=== PATIENT | female | born 1935 | race Caucasian/White ===

== ENCOUNTER 2017-02-16 04:36 | Inpatient (IN) | payer MEDICARE, OTHER ==
[2017-02-16] MEDS: SOD CHLORIDE 0.9% 500 ML IV (04:55)
[2017-02-16] MEDS: morphine 4 MG/ML VIAL IV (05:12)
[2017-02-16] MEDS: ONDANSETRON 4 MG INJ IV (05:12)
[2017-02-16 05:23] LABS: URINE PH (Dip) POC 5.5 (5.0-8.5)
[2017-02-16 05:23] LABS: URINE BLOOD (Dip) POC Trace-intact (NEGATIVE); URINE GLUCOSE (Dip) POC Negative (NEGATIVE); URINE KETONES (Dip) POC Negative (NEGATIVE); URINE LEUKOCYTE EST (Dip) POC 1+ (NEGATIVE); URINE NITRITE (Dip) POC Negative (NEGATIVE); URINE TOTAL PROTEIN POC Negative (NEGATIVE)
[2017-02-16] MEDS: CEFTRIAXONE 1 GM/50 ML (PMX) 50 ML IVPB ×2 (06:14→15:00)
[2017-02-16] MEDS: HYDROmorphONE 1 MG/ML SYG IV ×2 (06:14→08:57)
[2017-02-16 06:18] LABS: ADD MAN DIFF? NO
[2017-02-16 06:28] LABS: INR 1.06; PROTIME 13.9 Sec (11.9-14.9); PT RATIO 1.1
[2017-02-16 06:40] LABS: ADD UMIC YES; UR ASCORBIC ACID NEGATIVE (NEGATIVE); UR BACTERIA MANY /HPF (NONE SEEN); UR BILIRUBIN (Dip) NEGATIVE (NEGATIVE); UR BLOOD (Dip) NEGATIVE (NEGATIVE); UR BUDDING YEAST FEW /HPF (NONE SEEN); UR CLARITY SLIGHTLY CLOUDY (CLEAR); UR COLOR YELLOW (YELLOW); UR GLUCOSE (Dip) NEGATIVE (NEGATIVE); UR KETONES (Dip) NEGATIVE (NEGATIVE); UR LEUKOCYTE ESTERASE (Dip) TRACE Leu/ul (NEGATIVE); UR MUCUS FEW /HPF (NONE SEEN); UR NITRITE (Dip) NEGATIVE (NEGATIVE); UR RBC 0 /HPF (0-5); UR SQUAMOUS EPITHELIAL CELL FEW /HPF (FEW); UR TOTAL PROTEIN (Dip) NEGATIVE (NEGATIVE); UR UROBILINOGEN (Dip) 2+ mg/dL (NEGATIVE); UR WBC 27 /HPF (0-5)
[2017-02-16 06:41] LABS: WHITE BLOOD COUNT 7.5 10^3/ul (4.8-10.8)
[2017-02-16 06:41] LABS: BASOPHIL # 0.1 10^3/ul (0.0-0.1); BASOPHILS % 0.8 % (0.0-2.0); EOSINOPHILS # 0.2 10^3/ul (0.0-0.5); EOSINOPHILS % 2.5 % (0.0-7.0); HEMATOCRIT 43.2 % (37.0-47.0); LYMPHOCYTES # 1.7 10^3/ul (0.8-2.9); MEAN CORPUSCULAR HEMOGLOBIN 31.5 pg (29.0-33.0); MEAN CORPUSCULAR HGB CONC 32.4 g/dl (32.0-37.0); MEAN CORPUSCULAR VOLUME 97.3 fl (82.0-101.0); MEAN PLATELET VOLUME 10.7 fl (7.4-10.4); MONOCYTE # 0.5 10^3/ul (0.3-0.9); MONOCYTES % 6.5 % (0.0-11.0); NEUTROPHILS % 65.9 % (39.0-77.0); PLATELET COUNT 154 10^3/UL (140-415); RED BLOOD COUNT 4.44 10^6/ul (4.20-5.40); RED CELL DISTRIBUTION WIDTH 12.2 % (11.5-14.5)
[2017-02-16 07:02] LABS: ALANINE AMINOTRANSFERASE 28 IU/L (13-69); ALBUMIN 3.7 g/dl (3.3-4.9); ALBUMIN/GLOBULIN RATIO 1.32; ALKALINE PHOSPHATASE 72 IU/L (42-121); ANION GAP 15 (8-16); ASPARTATE AMINO TRANSFERASE 23 IU/L (15-46); BILIRUBIN,INDIRECT 0.4 mg/dl (0-1.1); BILIRUBIN,TOTAL 0.4 mg/dl (0.2-1.3); BLOOD UREA NITROGEN 13 mg/dl (7-20); CALCIUM 8.4 mg/dl (8.4-10.2); CARBON DIOXIDE 27 mmol/L (21-31); CHLORIDE 105 mmol/L (97-110); CREATININE 0.78 mg/dl (0.44-1.00); GLUCOSE 121 mg/dl (70-220); LIPASE 179 U/L (23-300); SODIUM 143 mmol/L (135-144); TOTAL PROTEIN 6.5 g/dl (6.1-8.1)
[2017-02-16] MEDS ORDERED: ONDANSETRON 4 MG INJ IV ×2 (11:00→15:00)
[2017-02-16] MEDS ORDERED: ACETAMINOPHEN 325 MG TAB PO (11:00)
[2017-02-16] MEDS: SOD CHLORIDE 0.9% 1,000 ML IV (15:00)
[2017-02-16] MEDS: KETOROLAC 15 MG INJ IV ×2 (15:00→21:11)
[2017-02-16] MEDS: FLUCONAZOLE 200 MG/NS (PMX) 100 ML IVPB (15:00)
[2017-02-16] MEDS ORDERED: ATORVASTATIN 10 MG TAB PO (21:00)
[2017-02-16] MEDS: ATORVASTATIN 40 MG TAB PO (21:30)
[2017-02-16] MEDS: HYDROCODONE/APAP (5/325) TAB PO (21:54)
[2017-02-16] MEDS ORDERED: HYDROCODONE/APAP (5/325) TAB PO (22:00)
[2017-02-16] MEDS: METOPROLOL 25 MG TAB PO (22:02)
[2017-02-17] MEDS: morphine 2 MG INJ IV ×2 (01:26→07:39)
[2017-02-17 02:05] LABS: CREATINE KINASE 6745 IU/L (23-200)
[2017-02-17 02:06] LABS: CK INDEX 0.3; TROPONIN-I 0.015 ng/ml (0.00-0.12)
[2017-02-17] MEDS: KETOROLAC 15 MG INJ IV ×4 (03:30→21:00)
[2017-02-17 05:50] LABS: ADD MAN DIFF? NO
[2017-02-17 05:57] LABS: BASOPHILS % 0.1 % (0.0-2.0); EOSINOPHILS % 0.1 % (0.0-7.0); HEMATOCRIT 39.7 % (37.0-47.0); HEMOGLOBIN 12.7 g/dl (12.0-16.0); LYMPHOCYTES # 1.1 10^3/ul (0.8-2.9); LYMPHOCYTES % 12.4 % (15.0-51.0); MEAN CORPUSCULAR HEMOGLOBIN 31.8 pg (29.0-33.0); MEAN CORPUSCULAR VOLUME 99.5 fl (82.0-101.0); MEAN PLATELET VOLUME 10.9 fl (7.4-10.4); MONOCYTE # 0.9 10^3/ul (0.3-0.9); MONOCYTES % 10.5 % (0.0-11.0); NEUTROPHIL # 6.8 10^3/ul (1.6-7.5); NEUTROPHILS % 76.6 % (39.0-77.0); PLATELET COUNT 142 10^3/UL (140-415); RED BLOOD COUNT 3.99 10^6/ul (4.20-5.40); RED CELL DISTRIBUTION WIDTH 12.5 % (11.5-14.5)
[2017-02-17 05:57] LABS: WHITE BLOOD COUNT 8.9 10^3/ul (4.8-10.8)
[2017-02-17 06:18] LABS: ANION GAP 14 (8-16); BLOOD UREA NITROGEN 20 mg/dl (7-20); CALCIUM 7.9 mg/dl (8.4-10.2); CARBON DIOXIDE 27 mmol/L (21-31); CHLORIDE 107 mmol/L (97-110); GLUCOSE 118 mg/dl (70-220); MAGNESIUM 1.7 mg/dl (1.7-2.5); POTASSIUM 4.4 mmol/L (3.5-5.1); SODIUM 144 mmol/L (135-144)
[2017-02-17 06:27] LABS: TROPONIN-I 0.017 ng/ml (0.00-0.12)
[2017-02-17] MEDS: SOD CHLORIDE 0.9% 1,000 ML IV (07:41)
[2017-02-17 08:13] LABS: CK INDEX 0.3; CREATINE KINASE 5050 IU/L (23-200)
[2017-02-17 08:38] LABS: HEMOGLOBIN A1C 5.5 % (0-5.9)
[2017-02-17] MEDS: TOLTERODINE (SR) 4 MG CAP PO (09:31)
[2017-02-17] MEDS: LORATADINE 10 MG TAB PO (09:31)
[2017-02-17] MEDS: ATENOLOL 25 MG TAB PO (09:32)
[2017-02-17] MEDS: FLUOXETINE 20 MG CAP PO (09:33)
[2017-02-17] MEDS: METOPROLOL 25 MG TAB PO ×2 (09:34→21:01)
[2017-02-17] MEDS: PANTOPRAZOLE (EC) 40 MG TAB PO (09:36)
[2017-02-17] MEDS: INFLUENZA VIRUS VACCINE 0.5 ML (DISPENSING) IM* (09:36)
[2017-02-17] MEDS: CEFTRIAXONE 1 GM/50 ML (PMX) 50 ML IVPB (14:32)
[2017-02-17] MEDS: FLUCONAZOLE 200 MG/NS (PMX) 100 ML IVPB (15:22)
[2017-02-17] MEDS: ATORVASTATIN 40 MG TAB PO (21:00)
[2017-02-17] MEDS: HEPARIN 5,000 UNIT/0.5 ML VIAL SC (21:09)
[2017-02-17] MEDS ORDERED: ZOLPIDEM 5 MG TAB PO (21:30)
[2017-02-17] MEDS: HYDROCODONE/APAP (5/325) TAB PO (22:21)
[2017-02-18] MEDS: KETOROLAC 15 MG INJ IV ×2 (03:05→10:12)
[2017-02-18 05:15] LABS: ADD MAN DIFF? NO
[2017-02-18 05:22] LABS: BASOPHIL # 0.1 10^3/ul (0.0-0.1); BASOPHILS % 0.6 % (0.0-2.0); EOSINOPHILS # 0.1 10^3/ul (0.0-0.5); EOSINOPHILS % 1.5 % (0.0-7.0); HEMATOCRIT 39.8 % (37.0-47.0); HEMOGLOBIN 12.7 g/dl (12.0-16.0); LYMPHOCYTES # 1.5 10^3/ul (0.8-2.9); LYMPHOCYTES % 18.1 % (15.0-51.0); MEAN CORPUSCULAR HEMOGLOBIN 31.9 pg (29.0-33.0); MEAN CORPUSCULAR HGB CONC 31.9 g/dl (32.0-37.0); MONOCYTE # 0.8 10^3/ul (0.3-0.9); NEUTROPHIL # 5.6 10^3/ul (1.6-7.5); NEUTROPHILS % 69.5 % (39.0-77.0); PLATELET COUNT 139 10^3/UL (140-415); RED BLOOD COUNT 3.98 10^6/ul (4.20-5.40); RED CELL DISTRIBUTION WIDTH 12.5 % (11.5-14.5)
[2017-02-18 06:18] LABS: ANION GAP 13 (8-16); BLOOD UREA NITROGEN 26 mg/dl (7-20); CALCIUM 8.6 mg/dl (8.4-10.2); CARBON DIOXIDE 29 mmol/L (21-31); CHLORIDE 108 mmol/L (97-110); CREATININE 0.82 mg/dl (0.44-1.00); GLUCOSE 110 mg/dl (70-220); POTASSIUM 4.3 mmol/L (3.5-5.1); SODIUM 146 mmol/L (135-144)
[2017-02-18] MEDS: FLUOXETINE 20 MG CAP PO (10:12)
[2017-02-18] MEDS: LORATADINE 10 MG TAB PO (10:13)
[2017-02-18] MEDS: METOPROLOL 25 MG TAB PO ×2 (10:13→20:29)
[2017-02-18] MEDS: TOLTERODINE (SR) 4 MG CAP PO (10:14)
[2017-02-18] MEDS: PANTOPRAZOLE (EC) 40 MG TAB PO (10:14)
[2017-02-18] MEDS: ATENOLOL 25 MG TAB PO (10:15)
[2017-02-18] MEDS: HEPARIN 5,000 UNIT/0.5 ML VIAL SC ×2 (10:16→20:30)
[2017-02-18] MEDS: CEFTRIAXONE 1 GM/50 ML (PMX) 50 ML IVPB (14:51)
[2017-02-18] MEDS: SOD CHLORIDE 0.9% 500 ML IV (15:33)
[2017-02-18] MEDS: GUAIFENESIN/DM 5ML CUP PO ×3 (15:57→20:28)
[2017-02-18] MEDS: BENZONATATE 100 MG CAP PO ×2 (15:57→20:28)
[2017-02-18] MEDS: FLUCONAZOLE 200 MG/NS (PMX) 100 ML IVPB (16:44)
[2017-02-18] MEDS: SOD CHLORIDE 0.9% 1,000 ML IV (16:44)
[2017-02-18] MEDS: morphine 2 MG INJ IV (19:34)
[2017-02-18] MEDS: ATORVASTATIN 40 MG TAB PO (20:28)
[2017-02-19] MEDS: morphine 2 MG INJ IV ×2 (00:28→04:29)
[2017-02-19] MEDS: GUAIFENESIN/DM 5ML CUP PO ×6 (02:54→23:00)
[2017-02-19 05:25] LABS: ADD MAN DIFF? NO
[2017-02-19 05:31] LABS: WHITE BLOOD COUNT 7.4 10^3/ul (4.8-10.8)
[2017-02-19 05:31] LABS: BASOPHILS % 0.5 % (0.0-2.0); EOSINOPHILS # 0.2 10^3/ul (0.0-0.5); EOSINOPHILS % 2.3 % (0.0-7.0); HEMATOCRIT 39.7 % (37.0-47.0); LYMPHOCYTES # 1.2 10^3/ul (0.8-2.9); LYMPHOCYTES % 16.4 % (15.0-51.0); MEAN CORPUSCULAR HEMOGLOBIN 32.1 pg (29.0-33.0); MEAN CORPUSCULAR HGB CONC 32.7 g/dl (32.0-37.0); MEAN PLATELET VOLUME 10.9 fl (7.4-10.4); MONOCYTE # 0.6 10^3/ul (0.3-0.9); MONOCYTES % 8.2 % (0.0-11.0); NEUTROPHIL # 5.4 10^3/ul (1.6-7.5); NEUTROPHILS % 72.3 % (39.0-77.0); PLATELET COUNT 145 10^3/UL (140-415); RED BLOOD COUNT 4.05 10^6/ul (4.20-5.40); RED CELL DISTRIBUTION WIDTH 12.5 % (11.5-14.5)
[2017-02-19 05:47] LABS: ANION GAP 14 (8-16); BLOOD UREA NITROGEN 22 mg/dl (7-20); CARBON DIOXIDE 29 mmol/L (21-31); CHLORIDE 106 mmol/L (97-110); CREATININE 0.74 mg/dl (0.44-1.00); GLUCOSE 117 mg/dl (70-220); POTASSIUM 4.2 mmol/L (3.5-5.1); SODIUM 145 mmol/L (135-144)
[2017-02-19] MEDS: LORATADINE 10 MG TAB PO (08:52)
[2017-02-19] MEDS: ATENOLOL 25 MG TAB PO (08:53)
[2017-02-19] MEDS: PANTOPRAZOLE (EC) 40 MG TAB PO (08:53)
[2017-02-19] MEDS: BENZONATATE 100 MG CAP PO ×3 (08:53→22:12)
[2017-02-19] MEDS: TOLTERODINE (SR) 4 MG CAP PO (08:53)
[2017-02-19] MEDS: FLUOXETINE 20 MG CAP PO (08:53)
[2017-02-19] MEDS: METOPROLOL 25 MG TAB PO ×2 (08:54→22:11)
[2017-02-19] MEDS: HEPARIN 5,000 UNIT/0.5 ML VIAL SC ×2 (08:56→22:14)
[2017-02-19] MEDS: CARISOPRODOL 350 MG TAB PO ×2 (12:57→22:15)
[2017-02-19] MEDS: ACETAMINOPHEN 1000MG/100ML IV 100 ML IVPB ×2 (12:57→18:10)
[2017-02-19] MEDS: SOD CHLORIDE 0.9% 1,000 ML IV (13:52)
[2017-02-19] MEDS: HYDROmorphONE 1 MG/ML SYG IV (14:04)
[2017-02-19] MEDS: CELECOXIB 100 MG CAP PO ×2 (14:16→22:12)
[2017-02-19] MEDS: CEFTRIAXONE 1 GM/50 ML (PMX) 50 ML IVPB (15:12)
[2017-02-19] MEDS: FLUCONAZOLE 200 MG TAB PO (18:10)
[2017-02-19] MEDS: ATORVASTATIN 40 MG TAB PO (22:11)
[2017-02-20] MEDS: ACETAMINOPHEN 1000MG/100ML IV 100 ML IVPB ×2 (00:22→05:57)
[2017-02-20] MEDS: GUAIFENESIN/DM 5ML CUP PO ×6 (03:00→23:00)
[2017-02-20 05:09] LABS: ADD MAN DIFF? NO
[2017-02-20 05:14] LABS: BASOPHILS % 0.4 % (0.0-2.0); EOSINOPHILS # 0.1 10^3/ul (0.0-0.5); EOSINOPHILS % 1.9 % (0.0-7.0); HEMATOCRIT 38.7 % (37.0-47.0); HEMOGLOBIN 12.7 g/dl (12.0-16.0); LYMPHOCYTES # 1.2 10^3/ul (0.8-2.9); LYMPHOCYTES % 16.4 % (15.0-51.0); MEAN CORPUSCULAR HEMOGLOBIN 32.4 pg (29.0-33.0); MEAN CORPUSCULAR HGB CONC 32.8 g/dl (32.0-37.0); MEAN CORPUSCULAR VOLUME 98.7 fl (82.0-101.0); MEAN PLATELET VOLUME 10.5 fl (7.4-10.4); MONOCYTE # 0.6 10^3/ul (0.3-0.9); MONOCYTES % 8.1 % (0.0-11.0); NEUTROPHIL # 5.3 10^3/ul (1.6-7.5); NEUTROPHILS % 72.8 % (39.0-77.0); PLATELET COUNT 155 10^3/UL (140-415); RED BLOOD COUNT 3.92 10^6/ul (4.20-5.40); RED CELL DISTRIBUTION WIDTH 13.1 % (11.5-14.5)
[2017-02-20 05:14] LABS: WHITE BLOOD COUNT 7.3 10^3/ul (4.8-10.8)
[2017-02-20 05:33] LABS: CREATINE KINASE 433 IU/L (23-200)
[2017-02-20 05:41] LABS: CK-MB 1.26 ng/ml (0.0-2.4)
[2017-02-20 06:07] LABS: ANION GAP 13 (8-16); BLOOD UREA NITROGEN 22 mg/dl (7-20); CALCIUM 8.1 mg/dl (8.4-10.2); CARBON DIOXIDE 29 mmol/L (21-31); CHLORIDE 106 mmol/L (97-110); CREATININE 0.79 mg/dl (0.44-1.00); GLUCOSE 118 mg/dl (70-220); POTASSIUM 4.4 mmol/L (3.5-5.1); SODIUM 144 mmol/L (135-144)
[2017-02-20] MEDS: SOD CHLORIDE 0.9% 1,000 ML IV ×2 (09:00→20:06)
[2017-02-20] MEDS: FLUOXETINE 20 MG CAP PO (09:01)
[2017-02-20] MEDS: ATENOLOL 25 MG TAB PO (09:01)
[2017-02-20] MEDS: PANTOPRAZOLE (EC) 40 MG TAB PO (09:01)
[2017-02-20] MEDS: LORATADINE 10 MG TAB PO (09:02)
[2017-02-20] MEDS: BENZONATATE 100 MG CAP PO ×3 (09:02→21:15)
[2017-02-20] MEDS: FLUCONAZOLE 200 MG TAB PO (09:02)
[2017-02-20] MEDS: METOPROLOL 25 MG TAB PO ×2 (09:02→21:15)
[2017-02-20] MEDS: TOLTERODINE (SR) 4 MG CAP PO (09:02)
[2017-02-20] MEDS: CELECOXIB 100 MG CAP PO ×2 (09:07→21:14)
[2017-02-20] MEDS: CARISOPRODOL 350 MG TAB PO ×3 (09:07→21:15)
[2017-02-20] MEDS: HEPARIN 5,000 UNIT/0.5 ML VIAL SC ×2 (09:15→21:19)
[2017-02-20] MEDS: CEFTRIAXONE 1 GM/50 ML (PMX) 50 ML IVPB (15:32)
[2017-02-20] MEDS: traMADol 50 MG TAB PO (17:15)
[2017-02-20] MEDS ORDERED: SOD CHLORIDE 0.9% 100 ML (17:31)
[2017-02-20] MEDS ORDERED: IODIXANOL LOCM 100 ML BTL (17:31)
[2017-02-20] MEDS: ATORVASTATIN 40 MG TAB PO (21:15)
[2017-02-21] MEDS: traMADol 50 MG TAB PO ×5 (00:01→23:23)
[2017-02-21] MEDS: GUAIFENESIN/DM 5ML CUP PO ×6 (03:00→23:00)
[2017-02-21] MEDS: PANTOPRAZOLE (EC) 40 MG TAB PO (09:35)
[2017-02-21] MEDS: LORATADINE 10 MG TAB PO (09:35)
[2017-02-21] MEDS: FLUOXETINE 20 MG CAP PO (09:35)
[2017-02-21] MEDS: METOPROLOL 25 MG TAB PO ×2 (09:36→20:27)
[2017-02-21] MEDS: CARISOPRODOL 350 MG TAB PO ×3 (09:36→20:27)
[2017-02-21] MEDS: FLUCONAZOLE 200 MG TAB PO (09:36)
[2017-02-21] MEDS: BENZONATATE 100 MG CAP PO ×3 (09:36→20:26)
[2017-02-21] MEDS: TOLTERODINE (SR) 4 MG CAP PO (09:37)
[2017-02-21] MEDS: CELECOXIB 100 MG CAP PO ×2 (09:37→20:29)
[2017-02-21] MEDS: HEPARIN 5,000 UNIT/0.5 ML VIAL SC ×2 (09:39→20:35)
[2017-02-21] MEDS: CEFTRIAXONE 1 GM/50 ML (PMX) 50 ML IVPB (14:52)
[2017-02-21] MEDS: SOD CHLORIDE 0.9% 1,000 ML IV (17:51)
[2017-02-21] MEDS: ATORVASTATIN 40 MG TAB PO (20:26)
[2017-02-22] MEDS: GUAIFENESIN/DM 5ML CUP PO ×6 (03:00→23:00)
[2017-02-22 05:52] LABS: PARTIAL THROMBOPLASTIN TIME 27.4 Sec (25.0-35.0)
[2017-02-22] MEDS: SENNA TAB PO ×3 (06:42→20:43)
[2017-02-22] MEDS: MAGNESIUM HYDROXIDE 30ML CUP PO ×2 (06:42→20:45)
[2017-02-22] MEDS: traMADol 50 MG TAB PO ×4 (06:43→23:43)
[2017-02-22] MEDS: CELECOXIB 100 MG CAP PO ×2 (08:37→20:43)
[2017-02-22] MEDS: LORATADINE 10 MG TAB PO (08:38)
[2017-02-22] MEDS: BENZONATATE 100 MG CAP PO ×3 (08:38→20:43)
[2017-02-22] MEDS: FLUCONAZOLE 200 MG TAB PO (08:38)
[2017-02-22] MEDS: PANTOPRAZOLE (EC) 40 MG TAB PO (08:39)
[2017-02-22] MEDS: FLUOXETINE 20 MG CAP PO (08:40)
[2017-02-22] MEDS: METOPROLOL 25 MG TAB PO ×2 (08:40→20:44)
[2017-02-22] MEDS: CARISOPRODOL 350 MG TAB PO ×3 (08:42→20:45)
[2017-02-22] MEDS: HEPARIN 5,000 UNIT/0.5 ML VIAL SC (08:48)
[2017-02-22] MEDS: TOLTERODINE (SR) 4 MG CAP PO (09:35)
[2017-02-22] MEDS: CEFTRIAXONE 1 GM/50 ML (PMX) 50 ML IVPB (14:36)
[2017-02-22] MEDS: SOD CHLORIDE 0.9% 1,000 ML IV (14:37)
[2017-02-22 18:44] LABS: ADD MAN DIFF? NO
[2017-02-22 18:49] LABS: BASOPHIL # 0.1 10^3/ul (0.0-0.1); BASOPHILS % 1.1 % (0.0-2.0); EOSINOPHILS # 0.3 10^3/ul (0.0-0.5); EOSINOPHILS % 3.9 % (0.0-7.0); HEMOGLOBIN 13.3 g/dl (12.0-16.0); LYMPHOCYTES # 1.4 10^3/ul (0.8-2.9); LYMPHOCYTES % 18.7 % (15.0-51.0); MEAN CORPUSCULAR HGB CONC 33.3 g/dl (32.0-37.0); MEAN CORPUSCULAR VOLUME 96.2 fl (82.0-101.0); MEAN PLATELET VOLUME 10.6 fl (7.4-10.4); MONOCYTE # 0.7 10^3/ul (0.3-0.9); MONOCYTES % 9.2 % (0.0-11.0); NEUTROPHILS % 66.8 % (39.0-77.0); PLATELET COUNT 161 10^3/UL (140-415); RED BLOOD COUNT 4.16 10^6/ul (4.20-5.40); RED CELL DISTRIBUTION WIDTH 13.2 % (11.5-14.5)
[2017-02-22 18:49] LABS: WHITE BLOOD COUNT 7.5 10^3/ul (4.8-10.8)
[2017-02-22] MEDS: ATORVASTATIN 40 MG TAB PO (20:43)
[2017-02-23] MEDS: GUAIFENESIN/DM 5ML CUP PO ×7 (03:00→23:00)
[2017-02-23 05:04] LABS: ADD MAN DIFF? NO
[2017-02-23 05:16] LABS: WHITE BLOOD COUNT 6.8 10^3/ul (4.8-10.8)
[2017-02-23 05:16] LABS: BASOPHIL # 0.1 10^3/ul (0.0-0.1); BASOPHILS % 0.7 % (0.0-2.0); EOSINOPHILS # 0.3 10^3/ul (0.0-0.5); EOSINOPHILS % 4.5 % (0.0-7.0); HEMATOCRIT 39.4 % (37.0-47.0); HEMOGLOBIN 12.9 g/dl (12.0-16.0); LYMPHOCYTES # 1.4 10^3/ul (0.8-2.9); LYMPHOCYTES % 20.6 % (15.0-51.0); MEAN CORPUSCULAR HEMOGLOBIN 31.5 pg (29.0-33.0); MEAN CORPUSCULAR HGB CONC 32.7 g/dl (32.0-37.0); MEAN CORPUSCULAR VOLUME 96.3 fl (82.0-101.0); MEAN PLATELET VOLUME 10.5 fl (7.4-10.4); MONOCYTE # 0.7 10^3/ul (0.3-0.9); MONOCYTES % 9.6 % (0.0-11.0); NEUTROPHIL # 4.4 10^3/ul (1.6-7.5); NEUTROPHILS % 63.9 % (39.0-77.0); PLATELET COUNT 158 10^3/UL (140-415); RED BLOOD COUNT 4.09 10^6/ul (4.20-5.40); RED CELL DISTRIBUTION WIDTH 13.1 % (11.5-14.5)
[2017-02-23] MEDS: traMADol 50 MG TAB PO ×3 (05:57→17:21)
[2017-02-23 06:16] LABS: ANION GAP 11 (8-16); BLOOD UREA NITROGEN 14 mg/dl (7-20); CARBON DIOXIDE 31 mmol/L (21-31); CHLORIDE 102 mmol/L (97-110); CREATININE 0.59 mg/dl (0.44-1.00); GLUCOSE 96 mg/dl (70-220); POTASSIUM 4.1 mmol/L (3.5-5.1); SODIUM 140 mmol/L (135-144)
[2017-02-23] MEDS: FLUCONAZOLE 200 MG TAB PO (09:00)
[2017-02-23] MEDS: CELECOXIB 100 MG CAP PO ×2 (09:00→19:50)
[2017-02-23] MEDS: SENNA TAB PO ×2 (09:01→19:50)
[2017-02-23] MEDS: FLUOXETINE 20 MG CAP PO (09:01)
[2017-02-23] MEDS: TOLTERODINE (SR) 4 MG CAP PO (09:01)
[2017-02-23] MEDS: PANTOPRAZOLE (EC) 40 MG TAB PO (09:01)
[2017-02-23] MEDS: LORATADINE 10 MG TAB PO (09:01)
[2017-02-23] MEDS: BENZONATATE 100 MG CAP PO ×3 (09:01→19:50)
[2017-02-23] MEDS: METOPROLOL 25 MG TAB PO ×2 (09:02→19:50)
[2017-02-23] MEDS: CARISOPRODOL 350 MG TAB PO ×3 (09:10→19:55)
[2017-02-23] MEDS: CEFTRIAXONE 1 GM/50 ML (PMX) 50 ML IVPB ×2 (15:00→16:19)
[2017-02-23] MEDS: LIDOCAINE 1% (MPF) 5 ML VIAL (15:42)
[2017-02-23 16:41] LABS: FLD MN% 77.8 %; FLD PMN% 22.2 %; FLD RBC 663000 /uL; FLD WBC 1367 /cmm
[2017-02-23 16:49] LABS: FLUID LD 748 U/L; FLUID TYPE PLEURAL FLUID
[2017-02-23 16:50] LABS: FLUID GLUCOSE 93 mg/dl; FLUID TYPE PLEURAL FLUID
[2017-02-23] MEDS: SOD CHLORIDE 0.9% 1,000 ML IV (17:21)
[2017-02-23 18:34] LABS: FLD TYPE PLEURAL
[2017-02-23 18:35] LABS: FLD CLARITY BLOODY; FLD COLOR RED
[2017-02-23] MEDS: ATORVASTATIN 40 MG TAB PO (19:50)
[2017-02-24] MEDS: traMADol 50 MG TAB PO ×5 (01:04→18:00)
[2017-02-24] MEDS: GUAIFENESIN/DM 5ML CUP PO ×6 (03:00→23:00)
[2017-02-24] MEDS: MAGNESIUM HYDROXIDE 30ML CUP PO (06:19)
[2017-02-24] MEDS: FLUOXETINE 20 MG CAP PO (09:11)
[2017-02-24] MEDS: SENNA TAB PO ×2 (09:11→20:14)
[2017-02-24] MEDS: PANTOPRAZOLE (EC) 40 MG TAB PO (09:11)
[2017-02-24] MEDS: LORATADINE 10 MG TAB PO (09:11)
[2017-02-24] MEDS: CELECOXIB 100 MG CAP PO ×2 (09:12→20:14)
[2017-02-24] MEDS: METOPROLOL 25 MG TAB PO ×2 (09:12→20:14)
[2017-02-24] MEDS: CARISOPRODOL 350 MG TAB PO ×3 (09:12→20:14)
[2017-02-24] MEDS: FLUCONAZOLE 200 MG TAB PO (09:12)
[2017-02-24] MEDS: TOLTERODINE (SR) 4 MG CAP PO (09:12)
[2017-02-24] MEDS: BENZONATATE 100 MG CAP PO ×3 (09:12→20:14)
[2017-02-24] MEDS: SOD CHLORIDE 0.9% 1,000 ML IV (12:55)
[2017-02-24] MEDS: CEFTRIAXONE 1 GM/50 ML (PMX) 50 ML IVPB (15:26)
[2017-02-24] MEDS: ATORVASTATIN 40 MG TAB PO (20:14)
[2017-02-25] MEDS: GUAIFENESIN/DM 5ML CUP PO ×4 (03:00→15:00)
[2017-02-25] MEDS: MAGNESIUM HYDROXIDE 30ML CUP PO (04:57)
[2017-02-25] MEDS: traMADol 50 MG TAB PO ×3 (04:57→12:26)
[2017-02-25] MEDS: BISACODYL 10 MG SUPP PR (06:20)
[2017-02-25] MEDS: BENZONATATE 100 MG CAP PO ×2 (08:53→12:26)
[2017-02-25] MEDS: SENNA TAB PO (08:54)
[2017-02-25] MEDS: TOLTERODINE (SR) 4 MG CAP PO (08:54)
[2017-02-25] MEDS: DOCUSATE SODIUM 100 MG CAP PO (08:54)
[2017-02-25] MEDS: LORATADINE 10 MG TAB PO (08:54)
[2017-02-25] MEDS: FLUOXETINE 20 MG CAP PO (08:54)
[2017-02-25] MEDS: PANTOPRAZOLE (EC) 40 MG TAB PO (08:55)
[2017-02-25] MEDS: METOPROLOL 25 MG TAB PO (08:56)
[2017-02-25] MEDS: SOD CHLORIDE 0.9% 1,000 ML IV (08:56)
[2017-02-25] MEDS: FLUCONAZOLE 200 MG TAB PO (09:00)
[2017-02-25] MEDS: POLYETHYLENE GLYCOL 17 GM PACKET PO (09:00)
[2017-02-25] MEDS: CEFTRIAXONE 1 GM/50 ML (PMX) 50 ML IVPB (15:59)
== END 2017-02-25 17:40 | DRG 964 ==
LOC: MS1 02-17 15:45 → E/R 04:36 → MS3 10:51
PROC: 0W9B3ZZ Drainage of Left Pleural Cavity, Percutaneous Approach (ICD-10-PCS; principal; 2017-02-23)
DX: S27.1XXA Traumatic hemothorax, initial encounter (principal); N39.0 Urinary tract infection, site not specified; T79.6XXA Traumatic ischemia of muscle, initial encounter; B49 Unspecified mycosis; D69.6 Thrombocytopenia, unspecified; J90 Pleural effusion, not elsewhere classified; I48.91 Unspecified atrial fibrillation; I10 Essential (primary) hypertension; F32.9 Major depressive disorder, single episode, unspecified; J98.11 Atelectasis; G30.9 Alzheimer's disease, unspecified; F02.80 Dementia in other diseases classified elsewhere, unspecified severity, without behavioral disturbance, psychotic disturbance, mood disturbance, and anxiety; S20.212A Contusion of left front wall of thorax, initial encounter; B96.20 Unspecified Escherichia coli [E. coli] as the cause of diseases classified elsewhere; M54.5 Low back pain; M54.89 Other dorsalgia; G89.29 Other chronic pain; W06.XXXA Fall from bed, initial encounter; Y92.009 Unspecified place in unspecified non-institutional (private) residence as the place of occurrence of the external cause
CPT/HCPCS: 36415; 70450; 71010; 71045; 71100; 71250; 72125; 72170; 74178; 76942; 80048; 80053; 81001; 81003; 82550; 82553; 82945; 83036; 83615; 83690; 83735; 84157; 84443; 84484; 85025; 85610; 85730; 87070; 87086; 87102; 87116; 88104; 88305; 89051; 90686; 93306; 96374; 96375; 96376; 97110; 97116; 97162; 97530; 99285-25

== ENCOUNTER 2017-05-03 10:39 | Inpatient (IN) | payer MEDICARE, OTHER ==
[2017-05-03] MEDS: SOD CHLORIDE 0.9% 1,000 ML IV (11:25)
[2017-05-03] MEDS: SOD CHLORIDE 0.9% 2,000 ML IV (11:25)
[2017-05-03] MEDS: ONDANSETRON 4 MG INJ IV (11:26)
[2017-05-03] MEDS: morphine 4 MG/ML VIAL IV (11:26)
[2017-05-03] MEDS: VANCOMYCIN 1 GM (PMX) 250 ML IVPB (11:26)
[2017-05-03] MEDS: CEFEPIME 2GM/50 ML (PMX) 50 ML IVPB (11:27)
[2017-05-03 11:29] LABS: WHITE BLOOD COUNT 17.3 10^3/ul (4.8-10.8)
[2017-05-03 11:29] LABS: ABNORMAL IP MESSAGE 1; ADD MAN DIFF? NO; BASOPHIL # 0.1 10^3/ul (0.0-0.1); BASOPHILS % 0.4 % (0.0-2.0); EOSINOPHILS % 0.1 % (0.0-7.0); HEMATOCRIT 48.3 % (37.0-47.0); HEMOGLOBIN 16.4 g/dl (12.0-16.0); LYMPHOCYTES # 1.4 10^3/ul (0.8-2.9); LYMPHOCYTES % 8.1 % (15.0-51.0); MEAN CORPUSCULAR HEMOGLOBIN 31.5 pg (29.0-33.0); MEAN CORPUSCULAR VOLUME 92.9 fl (82.0-101.0); MEAN PLATELET VOLUME 10.3 fl (7.4-10.4); MONOCYTE # 1.7 10^3/ul (0.3-0.9); MONOCYTES % 9.7 % (0.0-11.0); NEUTROPHIL # 13.9 10^3/ul (1.6-7.5); NEUTROPHILS % 80.3 % (39.0-77.0); PLATELET COUNT 320 10^3/UL (140-415); RED CELL DISTRIBUTION WIDTH 13.1 % (11.5-14.5)
[2017-05-03 11:30] LABS: POSITIVE DIFF @See below
[2017-05-03 11:45] LABS: INR 1.38; PROTIME 17.2 Sec (11.9-14.9); PT RATIO 1.3
[2017-05-03 11:47] LABS: ALANINE AMINOTRANSFERASE 70 IU/L (13-69); ALBUMIN 3.3 g/dl (3.3-4.9); ALBUMIN/GLOBULIN RATIO 0.89; ALKALINE PHOSPHATASE 166 IU/L (42-121); ANION GAP 18 (8-16); ASPARTATE AMINO TRANSFERASE 62 IU/L (15-46); BILIRUBIN,INDIRECT 0.5 mg/dl (0-1.1); BILIRUBIN,TOTAL 0.5 mg/dl (0.2-1.3); BLOOD UREA NITROGEN 45 mg/dl (7-20); CALCIUM 9.2 mg/dl (8.4-10.2); CARBON DIOXIDE 25 mmol/L (21-31); CHLORIDE 106 mmol/L (97-110); CREATININE 0.85 mg/dl (0.44-1.00); GLUCOSE 115 mg/dl (70-220); POTASSIUM 4.4 mmol/L (3.5-5.1); SODIUM 145 mmol/L (135-144)
[2017-05-03 11:58] LABS: TROPONIN-I < 0.012 ng/ml (0.00-0.12)
[2017-05-03 12:05] LABS: LACTIC ACID 2.6 mmol/L (0.5-2.0)
[2017-05-03 12:54] LABS: LACTIC ACID 1.4 mmol/L (0.5-2.0)
[2017-05-03] MEDS ORDERED: ACETAMINOPHEN 325 MG TAB PO (13:00)
[2017-05-03] MEDS ORDERED: ONDANSETRON 4 MG INJ IV ×2 (13:00→15:30)
[2017-05-03 14:18] LABS: ADD UMIC YES; UR ASCORBIC ACID 40 mg/dL (NEGATIVE); UR BACTERIA MANY /HPF (NONE SEEN); UR BILIRUBIN (Dip) NEGATIVE (NEGATIVE); UR BLOOD (Dip) 2+ mg/dL (NEGATIVE); UR CLARITY TURBID (CLEAR); UR COLOR YELLOW (YELLOW); UR GLUCOSE (Dip) NEGATIVE (NEGATIVE); UR KETONES (Dip) TRACE mg/dL (NEGATIVE); UR LEUKOCYTE ESTERASE (Dip) 3+ Leu/ul (NEGATIVE); UR MUCUS MODERATE /HPF (NONE SEEN); UR NITRITE (Dip) NEGATIVE (NEGATIVE); UR RBC 73 /HPF (0-5); UR SPECIFIC GRAVITY (Dip) 1.018 (1.003-1.030); UR TOTAL PROTEIN (Dip) 3+ mg/dl (NEGATIVE); UR UROBILINOGEN (Dip) 2+ mg/dL (NEGATIVE); UR WBC > 182 /HPF (0-5)
[2017-05-03] MEDS ORDERED: NACL 0.9% 3 ML SYG IV (15:30)
[2017-05-03] MEDS ORDERED: hydrALAzine 20 MG INJ IV (15:30)
[2017-05-03] MEDS ORDERED: MAGNESIUM HYDROXIDE 30ML CUP PO (15:30)
[2017-05-03] MEDS: CEFTRIAXONE 1 GM/50 ML (PMX) 50 ML IVPB (17:02)
[2017-05-03] MEDS: SOD CHLORIDE 0.45% 1,000 ML IV (17:02)
[2017-05-03 17:32] LABS: LACTIC ACID 1.6 mmol/L (0.5-2.0)
[2017-05-04] MEDS: SOD CHLORIDE 0.45% 1,000 ML IV ×3 (01:56→14:49)
[2017-05-04 05:24] LABS: ADD MAN DIFF? NO; HAAIG REFLEX REFLEX FILED
[2017-05-04 05:41] LABS: WHITE BLOOD COUNT 13.1 10^3/ul (4.8-10.8)
[2017-05-04 05:41] LABS: BASOPHILS % 0.3 % (0.0-2.0); EOSINOPHILS % 0.3 % (0.0-7.0); HEMATOCRIT 42.9 % (37.0-47.0); HEMOGLOBIN 13.9 g/dl (12.0-16.0); LYMPHOCYTES # 1.1 10^3/ul (0.8-2.9); LYMPHOCYTES % 8.4 % (15.0-51.0); MEAN CORPUSCULAR HEMOGLOBIN 30.8 pg (29.0-33.0); MEAN CORPUSCULAR HGB CONC 32.4 g/dl (32.0-37.0); MEAN CORPUSCULAR VOLUME 95.1 fl (82.0-101.0); MEAN PLATELET VOLUME 9.9 fl (7.4-10.4); MONOCYTE # 1.3 10^3/ul (0.3-0.9); MONOCYTES % 9.6 % (0.0-11.0); NEUTROPHIL # 10.5 10^3/ul (1.6-7.5); NEUTROPHILS % 79.7 % (39.0-77.0); PLATELET COUNT 214 10^3/UL (140-415); RED BLOOD COUNT 4.51 10^6/ul (4.20-5.40)
[2017-05-04 05:57] LABS: ALANINE AMINOTRANSFERASE 50 IU/L (13-69); ALBUMIN 2.5 g/dl (3.3-4.9); ALKALINE PHOSPHATASE 122 IU/L (42-121); ANION GAP 17 (8-16); ASPARTATE AMINO TRANSFERASE 34 IU/L (15-46); BILIRUBIN,INDIRECT 0.1 mg/dl (0-1.1); BILIRUBIN,TOTAL 0.1 mg/dl (0.2-1.3); BLOOD UREA NITROGEN 31 mg/dl (7-20); CALCIUM 8.4 mg/dl (8.4-10.2); CARBON DIOXIDE 23 mmol/L (21-31); CHLORIDE 112 mmol/L (97-110); CREATININE 0.62 mg/dl (0.44-1.00); GLUCOSE 83 mg/dl (70-220); MAGNESIUM 2.1 mg/dl (1.7-2.5); PHOSPHORUS 3.3 mg/dl (2.5-4.9); POTASSIUM 4.4 mmol/L (3.5-5.1); SODIUM 148 mmol/L (135-144)
[2017-05-04 06:23] LABS: HEPATITIS B SURFACE ANTIGEN NEGATIVE (NEGATIVE)
[2017-05-04 06:42] LABS: HEPATITIS B CORE ANTIBODY NEGATIVE (NEGATIVE); HEPATITIS C VIRAL ANTIBODY NEGATIVE (NEGATIVE)
[2017-05-04] MEDS: metroNIDAZOLE 500 MG/NS (PMX) 100 ML IVPB ×2 (14:49→22:06)
[2017-05-04] MEDS: CEFTRIAXONE 1 GM/50 ML (PMX) 50 ML IVPB (17:56)
[2017-05-05 06:14] LABS: ADD MAN DIFF? NO
[2017-05-05 06:26] LABS: WHITE BLOOD COUNT 10.8 10^3/ul (4.8-10.8)
[2017-05-05 06:26] LABS: BASOPHILS % 0.4 % (0.0-2.0); EOSINOPHILS # 0.2 10^3/ul (0.0-0.5); EOSINOPHILS % 1.7 % (0.0-7.0); HEMATOCRIT 41.4 % (37.0-47.0); HEMOGLOBIN 13.7 g/dl (12.0-16.0); LYMPHOCYTES # 1.2 10^3/ul (0.8-2.9); LYMPHOCYTES % 11.2 % (15.0-51.0); MEAN CORPUSCULAR HEMOGLOBIN 31.3 pg (29.0-33.0); MEAN CORPUSCULAR HGB CONC 33.1 g/dl (32.0-37.0); MEAN CORPUSCULAR VOLUME 94.5 fl (82.0-101.0); MEAN PLATELET VOLUME 10.2 fl (7.4-10.4); MONOCYTE # 0.9 10^3/ul (0.3-0.9); MONOCYTES % 8.7 % (0.0-11.0); NEUTROPHIL # 8.1 10^3/ul (1.6-7.5); NEUTROPHILS % 75.6 % (39.0-77.0); PLATELET COUNT 205 10^3/UL (140-415); RED BLOOD COUNT 4.38 10^6/ul (4.20-5.40); RED CELL DISTRIBUTION WIDTH 12.9 % (11.5-14.5)
[2017-05-05] MEDS: metroNIDAZOLE 500 MG/NS (PMX) 100 ML IVPB (06:45)
[2017-05-05 06:49] LABS: ANION GAP 14 (8-16); BLOOD UREA NITROGEN 23 mg/dl (7-20); CALCIUM 8.3 mg/dl (8.4-10.2); CARBON DIOXIDE 24 mmol/L (21-31); CHLORIDE 112 mmol/L (97-110); CREATININE 0.53 mg/dl (0.44-1.00); GLUCOSE 79 mg/dl (70-220); MAGNESIUM 2.2 mg/dl (1.7-2.5); PHOSPHORUS 2.9 mg/dl (2.5-4.9); POTASSIUM 4.3 mmol/L (3.5-5.1); SODIUM 146 mmol/L (135-144)
[2017-05-05] MEDS: SOD CHLORIDE 0.45% 1,000 ML IV ×2 (07:30→13:11)
[2017-05-05] MEDS: NA PHOSPHATE/BIPHOS 133 ML ENEMA PR (14:29)
[2017-05-05] MEDS: CEFTRIAXONE 1 GM/50 ML (PMX) 50 ML IVPB (16:16)
[2017-05-05] MEDS: POLYETHYLENE GLYCOL 17 GM PACKET NGT ×2 (16:16→21:57)
[2017-05-05] MEDS ORDERED: ACETAMINOPHEN 325 MG TAB PO (18:30)
[2017-05-05] MEDS: traMADol 50 MG TAB PO (18:44)
[2017-05-06] MEDS: POLYETHYLENE GLYCOL 17 GM PACKET NGT ×2 (10:27→21:21)
[2017-05-06] MEDS: CEFTRIAXONE 1 GM/50 ML (PMX) 50 ML IVPB (16:17)
[2017-05-06 18:51] LABS: ANA SCREEN POSITIVE (NEGATIVE)
[2017-05-06 19:38] LABS: ANA PATTERN HOMOGENEOUS
[2017-05-07] MEDS: POLYETHYLENE GLYCOL 17 GM PACKET NGT (09:20)
[2017-05-07] MEDS: CEFTRIAXONE 1 GM/50 ML (PMX) 50 ML IVPB (16:34)
[2017-05-08] MEDS: POLYETHYLENE GLYCOL 17 GM PACKET PO (09:17)
[2017-05-08] MEDS: CEFTRIAXONE 1 GM/50 ML (PMX) 50 ML IVPB (16:25)
[2017-05-09] MEDS: POLYETHYLENE GLYCOL 17 GM PACKET PO (09:00)
[2017-05-09 14:10] LABS: ADD MAN DIFF? NO
[2017-05-09 14:12] LABS: WHITE BLOOD COUNT 12.8 10^3/ul (4.8-10.8)
[2017-05-09 14:12] LABS: BASOPHIL # 0.1 10^3/ul (0.0-0.1); BASOPHILS % 0.5 % (0.0-2.0); EOSINOPHILS # 0.1 10^3/ul (0.0-0.5); EOSINOPHILS % 0.9 % (0.0-7.0); HEMATOCRIT 41.7 % (37.0-47.0); HEMOGLOBIN 13.8 g/dl (12.0-16.0); LYMPHOCYTES # 1.3 10^3/ul (0.8-2.9); LYMPHOCYTES % 10.3 % (15.0-51.0); MEAN CORPUSCULAR HEMOGLOBIN 30.6 pg (29.0-33.0); MEAN CORPUSCULAR HGB CONC 33.1 g/dl (32.0-37.0); MEAN CORPUSCULAR VOLUME 92.5 fl (82.0-101.0); MEAN PLATELET VOLUME 9.9 fl (7.4-10.4); MONOCYTE # 0.8 10^3/ul (0.3-0.9); MONOCYTES % 6.3 % (0.0-11.0); NEUTROPHIL # 10.1 10^3/ul (1.6-7.5); NEUTROPHILS % 79.4 % (39.0-77.0); PLATELET COUNT 242 10^3/UL (140-415); RED BLOOD COUNT 4.51 10^6/ul (4.20-5.40); RED CELL DISTRIBUTION WIDTH 12.8 % (11.5-14.5)
[2017-05-09 14:35] LABS: ALANINE AMINOTRANSFERASE 41 IU/L (13-69); ALBUMIN 2.7 g/dl (3.3-4.9); ALBUMIN/GLOBULIN RATIO 0.96; ALKALINE PHOSPHATASE 101 IU/L (42-121); ANION GAP 15 (8-16); ASPARTATE AMINO TRANSFERASE 28 IU/L (15-46); BILIRUBIN,INDIRECT 0.3 mg/dl (0-1.1); BILIRUBIN,TOTAL 0.3 mg/dl (0.2-1.3); BLOOD UREA NITROGEN 14 mg/dl (7-20); CALCIUM 8.2 mg/dl (8.4-10.2); CARBON DIOXIDE 27 mmol/L (21-31); CHLORIDE 102 mmol/L (97-110); CREATININE 0.48 mg/dl (0.44-1.00); GLUCOSE 114 mg/dl (70-220); SODIUM 140 mmol/L (135-144); TOTAL PROTEIN 5.5 g/dl (6.1-8.1)
[2017-05-09] MEDS: CEFTRIAXONE 1 GM/50 ML (PMX) 50 ML IVPB (16:03)
[2017-05-10] MEDS: FLUCONAZOLE 100 MG TAB PO (17:14)
[2017-05-11] MEDS ORDERED: FLUCONAZOLE 100 MG TAB PO (09:00)
== END 2017-05-10 18:30 | DRG 871 ==
LOC: E/R 10:39 → MS2 16:39
DX: A41.9 Sepsis, unspecified organism (principal); G93.41 Metabolic encephalopathy; E87.2 Acidosis; Z68.41 Body mass index [BMI] 40.0-44.9, adult; N39.0 Urinary tract infection, site not specified; I48.0 Paroxysmal atrial fibrillation; E86.0 Dehydration; K74.60 Unspecified cirrhosis of liver; E66.01 Morbid (severe) obesity due to excess calories; I10 Essential (primary) hypertension; G30.9 Alzheimer's disease, unspecified; F02.80 Dementia in other diseases classified elsewhere, unspecified severity, without behavioral disturbance, psychotic disturbance, mood disturbance, and anxiety; F32.9 Major depressive disorder, single episode, unspecified; N20.0 Calculus of kidney; I25.10 Atherosclerotic heart disease of native coronary artery without angina pectoris; K76.0 Fatty (change of) liver, not elsewhere classified; R91.8 Other nonspecific abnormal finding of lung field; R65.20 Severe sepsis without septic shock; M54.9 Dorsalgia, unspecified; R19.7 Diarrhea, unspecified; K56.41 Fecal impaction; R31.9 Hematuria, unspecified; R79.1 Abnormal coagulation profile; B96.20 Unspecified Escherichia coli [E. coli] as the cause of diseases classified elsewhere; Z90.49 Acquired absence of other specified parts of digestive tract
CPT/HCPCS: 36415; 71045; 74176; 80048; 80053; 81001; 83605; 83735; 84100; 84484; 85025; 85610; 85730; 86038; 86704; 86709; 86803; 87040; 87045; 87075; 87086; 87340; 93005; 96365; 96366; 96368; 96375; 97110; 97163; 97530; 99291-25

== ENCOUNTER 2017-06-19 10:38 | Inpatient (IN) | payer MEDICARE, OTHER ==
[2017-06-19 11:24] LABS: ADD MAN DIFF? NO
[2017-06-19 11:26] LABS: WHITE BLOOD COUNT 10.4 10^3/ul (4.8-10.8)
[2017-06-19 11:26] LABS: BASOPHIL # 0.1 10^3/ul (0.0-0.1); BASOPHILS % 0.6 % (0.0-2.0); EOSINOPHILS # 0.1 10^3/ul (0.0-0.5); EOSINOPHILS % 1.1 % (0.0-7.0); HEMOGLOBIN 15.4 g/dl (12.0-16.0); LYMPHOCYTES # 2.6 10^3/ul (0.8-2.9); LYMPHOCYTES % 24.6 % (15.0-51.0); MEAN CORPUSCULAR HEMOGLOBIN 31.8 pg (29.0-33.0); MEAN CORPUSCULAR HGB CONC 33.5 g/dl (32.0-37.0); MEAN CORPUSCULAR VOLUME 94.8 fl (82.0-101.0); MEAN PLATELET VOLUME 10.1 fl (7.4-10.4); MONOCYTES % 9.7 % (0.0-11.0); NEUTROPHIL # 6.6 10^3/ul (1.6-7.5); NEUTROPHILS % 63.4 % (39.0-77.0); PLATELET COUNT 269 10^3/UL (140-415); RED BLOOD COUNT 4.85 10^6/ul (4.20-5.40); RED CELL DISTRIBUTION WIDTH 14.2 % (11.5-14.5)
[2017-06-19] MEDS: SOD CHLORIDE 0.9% 1,000 ML IV (11:37)
[2017-06-19 11:47] LABS: ALANINE AMINOTRANSFERASE 16 IU/L (13-69); ALBUMIN 2.8 g/dl (3.3-4.9); ALBUMIN/GLOBULIN RATIO 0.75; ALKALINE PHOSPHATASE 107 IU/L (42-121); ANION GAP 10 (8-16); ASPARTATE AMINO TRANSFERASE 39 IU/L (15-46); BILIRUBIN,INDIRECT 0.7 mg/dl (0-1.1); BILIRUBIN,TOTAL 0.7 mg/dl (0.2-1.3); BLOOD UREA NITROGEN 16 mg/dl (7-20); CALCIUM 8.6 mg/dl (8.4-10.2); CARBON DIOXIDE 34 mmol/L (21-31); CHLORIDE 96 mmol/L (97-110); CREATININE 0.68 mg/dl (0.44-1.00); GLUCOSE 129 mg/dl (70-220); LIPASE 40 U/L (23-300); SODIUM 136 mmol/L (135-144); TOTAL PROTEIN 6.5 g/dl (6.1-8.1)
[2017-06-19 11:59] LABS: TROPONIN-I 0.024 ng/ml (0.00-0.12)
[2017-06-19 13:15] LABS: ADD UMIC YES; UR AMORPHOUS CRYSTAL FEW /HPF (NONE SEEN); UR ASCORBIC ACID NEGATIVE (NEGATIVE); UR BACTERIA MANY /HPF (NONE SEEN); UR BILIRUBIN (Dip) NEGATIVE (NEGATIVE); UR BLOOD (Dip) NEGATIVE (NEGATIVE); UR CLARITY CLOUDY (CLEAR); UR COLOR AMBER (YELLOW); UR GLUCOSE (Dip) NEGATIVE (NEGATIVE); UR KETONES (Dip) NEGATIVE (NEGATIVE); UR LEUKOCYTE ESTERASE (Dip) TRACE Leu/ul (NEGATIVE); UR MUCUS FEW /HPF (NONE SEEN); UR NITRITE (Dip) NEGATIVE (NEGATIVE); UR RBC 4 /HPF (0-5); UR SPECIFIC GRAVITY (Dip) 1.014 (1.003-1.030); UR SQUAMOUS EPITHELIAL CELL FEW /HPF (FEW); UR TOTAL PROTEIN (Dip) NEGATIVE (NEGATIVE); UR UROBILINOGEN (Dip) 2+ mg/dL (NEGATIVE); UR WBC 17 /HPF (0-5)
[2017-06-19] MEDS: DILTIAZEM 50 MG INJ IV (13:27)
[2017-06-19] MEDS ORDERED: DILTIAZEM 50 MG INJ IV (13:30)
[2017-06-19] MEDS: CEFTRIAXONE 1 GM/50 ML (PMX) 50 ML IVPB (15:09)
[2017-06-19] MEDS: DILTIAZEM 30 MG TAB PO (15:24)
[2017-06-19] MEDS: METOPROLOL 25 MG TAB PO ×2 (16:52→23:19)
[2017-06-19] MEDS ORDERED: NACL 0.9% 3 ML SYG IV (18:30)
[2017-06-19] MEDS: APIXABAN 5 MG TABLET PO (21:09)
[2017-06-20] MEDS: KETOROLAC 30 MG INJ IV (02:06)
[2017-06-20 02:12] LABS: ALANINE AMINOTRANSFERASE 22 IU/L (13-69); ALBUMIN/GLOBULIN RATIO 0.74; ALKALINE PHOSPHATASE 76 IU/L (42-121); ANION GAP 4 (8-16); ASPARTATE AMINO TRANSFERASE 22 IU/L (15-46); BILIRUBIN,INDIRECT 0.4 mg/dl (0-1.1); BILIRUBIN,TOTAL 0.4 mg/dl (0.2-1.3); BLOOD UREA NITROGEN 14 mg/dl (7-20); CALCIUM 7.6 mg/dl (8.4-10.2); CARBON DIOXIDE 30 mmol/L (21-31); CHLORIDE 104 mmol/L (97-110); CREATININE 0.51 mg/dl (0.44-1.00); GLUCOSE 101 mg/dl (70-220); MAGNESIUM 1.7 mg/dl (1.7-2.5); POTASSIUM 3.1 mmol/L (3.5-5.1); SODIUM 135 mmol/L (135-144); TOTAL PROTEIN 4.7 g/dl (6.1-8.1)
[2017-06-20 02:41] LABS: THYROID STIMULATING HORMONE 0.904 MIU/L (0.465-4.680)
[2017-06-20] MEDS: POTASSIUM CHLORIDE (SR) 20 MEQ TAB PO (04:37)
[2017-06-20] MEDS: MAGNESIUM SULFATE 2 GM/50 ML 50 ML IVPB (04:38)
[2017-06-20 07:26] LABS: ADD MAN DIFF? NO
[2017-06-20 07:30] LABS: BASOPHIL # 0.1 10^3/ul (0.0-0.1); BASOPHILS % 0.7 % (0.0-2.0); EOSINOPHILS # 0.2 10^3/ul (0.0-0.5); EOSINOPHILS % 2.1 % (0.0-7.0); HEMATOCRIT 39.8 % (37.0-47.0); HEMOGLOBIN 12.8 g/dl (12.0-16.0); LYMPHOCYTES # 2.5 10^3/ul (0.8-2.9); LYMPHOCYTES % 30.1 % (15.0-51.0); MEAN CORPUSCULAR HEMOGLOBIN 30.8 pg (29.0-33.0); MEAN CORPUSCULAR HGB CONC 32.2 g/dl (32.0-37.0); MEAN CORPUSCULAR VOLUME 95.9 fl (82.0-101.0); MEAN PLATELET VOLUME 9.7 fl (7.4-10.4); MONOCYTE # 0.8 10^3/ul (0.3-0.9); MONOCYTES % 10.1 % (0.0-11.0); NEUTROPHIL # 4.7 10^3/ul (1.6-7.5); NEUTROPHILS % 56.5 % (39.0-77.0); PLATELET COUNT 209 10^3/UL (140-415); RED BLOOD COUNT 4.15 10^6/ul (4.20-5.40); RED CELL DISTRIBUTION WIDTH 14.1 % (11.5-14.5)
[2017-06-20 07:30] LABS: WHITE BLOOD COUNT 8.3 10^3/ul (4.8-10.8)
[2017-06-20 08:02] LABS: ALANINE AMINOTRANSFERASE 21 IU/L (13-69); ALBUMIN 2.3 g/dl (3.3-4.9); ALBUMIN/GLOBULIN RATIO 0.79; ALKALINE PHOSPHATASE 87 IU/L (42-121); ANION GAP 10 (8-16); ASPARTATE AMINO TRANSFERASE 32 IU/L (15-46); BILIRUBIN,INDIRECT 0.4 mg/dl (0-1.1); BILIRUBIN,TOTAL 0.4 mg/dl (0.2-1.3); BLOOD UREA NITROGEN 13 mg/dl (7-20); CALCIUM 7.8 mg/dl (8.4-10.2); CARBON DIOXIDE 28 mmol/L (21-31); CHLORIDE 103 mmol/L (97-110); CREATININE 0.53 mg/dl (0.44-1.00); GLUCOSE 98 mg/dl (70-220); POTASSIUM 3.5 mmol/L (3.5-5.1); SODIUM 137 mmol/L (135-144); TOTAL PROTEIN 5.2 g/dl (6.1-8.1)
[2017-06-20] MEDS: METOPROLOL 25 MG TAB PO ×2 (09:00→20:59)
[2017-06-20] MEDS: APIXABAN 5 MG TABLET PO ×2 (09:08→20:52)
[2017-06-20] MEDS: BALSAM PERU/CASTOR OIL 60 GM TUBE TOP (20:53)
[2017-06-20] MEDS: SODIUM HYPOCHLORITE 0.125% 473 ML BTL IRR (21:05)
[2017-06-21] MEDS: LEVOFLOXACIN 250 MG TAB PO (07:01)
[2017-06-21] MEDS: METOPROLOL 25 MG TAB PO ×2 (09:00→20:49)
[2017-06-21] MEDS: BALSAM PERU/CASTOR OIL 60 GM TUBE TOP ×2 (09:00→20:48)
[2017-06-21] MEDS: SODIUM HYPOCHLORITE 0.125% 473 ML BTL IRR ×2 (09:00→20:48)
[2017-06-21] MEDS: APIXABAN 5 MG TABLET PO ×2 (09:39→20:49)
[2017-06-22] MEDS: LEVOFLOXACIN 250 MG TAB PO (05:39)
[2017-06-22 06:39] LABS: MAGNESIUM 1.9 mg/dl (1.7-2.5)
[2017-06-22 06:47] LABS: ANION GAP 10 (8-16); BLOOD UREA NITROGEN 8 mg/dl (7-20); CARBON DIOXIDE 28 mmol/L (21-31); CHLORIDE 107 mmol/L (97-110); CREATININE 0.46 mg/dl (0.44-1.00); GLUCOSE 103 mg/dl (70-220); POTASSIUM 3.6 mmol/L (3.5-5.1); SODIUM 141 mmol/L (135-144)
[2017-06-22] MEDS: BALSAM PERU/CASTOR OIL 60 GM TUBE TOP ×2 (09:00→20:49)
[2017-06-22] MEDS: SODIUM HYPOCHLORITE 0.125% 473 ML BTL IRR ×2 (09:00→20:48)
[2017-06-22] MEDS: METOPROLOL 25 MG TAB PO ×2 (09:51→20:48)
[2017-06-22] MEDS: APIXABAN 5 MG TABLET PO ×2 (09:51→20:48)
[2017-06-23] MEDS: LEVOFLOXACIN 250 MG TAB PO (05:19)
[2017-06-23 07:41] LABS: ADD MAN DIFF? NO
[2017-06-23 07:49] LABS: BASOPHILS % 0.5 % (0.0-2.0); EOSINOPHILS # 0.1 10^3/ul (0.0-0.5); EOSINOPHILS % 2.1 % (0.0-7.0); HEMATOCRIT 38.9 % (37.0-47.0); HEMOGLOBIN 12.7 g/dl (12.0-16.0); LYMPHOCYTES # 1.6 10^3/ul (0.8-2.9); MEAN CORPUSCULAR HEMOGLOBIN 31.1 pg (29.0-33.0); MEAN CORPUSCULAR HGB CONC 32.6 g/dl (32.0-37.0); MEAN CORPUSCULAR VOLUME 95.1 fl (82.0-101.0); MEAN PLATELET VOLUME 9.9 fl (7.4-10.4); MONOCYTE # 0.5 10^3/ul (0.3-0.9); MONOCYTES % 8.4 % (0.0-11.0); NEUTROPHIL # 3.8 10^3/ul (1.6-7.5); NEUTROPHILS % 62.7 % (39.0-77.0); PLATELET COUNT 188 10^3/UL (140-415); RED BLOOD COUNT 4.09 10^6/ul (4.20-5.40); RED CELL DISTRIBUTION WIDTH 14.1 % (11.5-14.5)
[2017-06-23 07:49] LABS: WHITE BLOOD COUNT 6.1 10^3/ul (4.8-10.8)
[2017-06-23 08:07] LABS: INR 1.42; PROTIME 17.6 Sec (11.9-14.9); PT RATIO 1.4
[2017-06-23 08:08] LABS: PARTIAL THROMBOPLASTIN TIME 33.1 Sec (25.0-35.0)
[2017-06-23 08:17] LABS: MAGNESIUM 1.8 mg/dl (1.7-2.5)
[2017-06-23 08:17] LABS: ALANINE AMINOTRANSFERASE 30 IU/L (13-69); ALBUMIN 2.4 g/dl (3.3-4.9); ALBUMIN/GLOBULIN RATIO 0.82; ALKALINE PHOSPHATASE 82 IU/L (42-121); ANION GAP 8 (8-16); ASPARTATE AMINO TRANSFERASE 25 IU/L (15-46); BILIRUBIN,INDIRECT 0.6 mg/dl (0-1.1); BILIRUBIN,TOTAL 0.6 mg/dl (0.2-1.3); BLOOD UREA NITROGEN 6 mg/dl (7-20); CALCIUM 8.1 mg/dl (8.4-10.2); CARBON DIOXIDE 30 mmol/L (21-31); CHLORIDE 108 mmol/L (97-110); CREATININE 0.46 mg/dl (0.44-1.00); GLUCOSE 84 mg/dl (70-220); POTASSIUM 3.4 mmol/L (3.5-5.1); SODIUM 143 mmol/L (135-144); TOTAL PROTEIN 5.3 g/dl (6.1-8.1)
[2017-06-23] MEDS: METOPROLOL 25 MG TAB PO ×2 (09:00→20:37)
[2017-06-23] MEDS: SODIUM HYPOCHLORITE 0.125% 473 ML BTL IRR ×2 (09:11→20:38)
[2017-06-23] MEDS: BALSAM PERU/CASTOR OIL 60 GM TUBE TOP ×2 (09:11→20:38)
[2017-06-23] MEDS: APIXABAN 5 MG TABLET PO ×2 (09:12→20:37)
[2017-06-23] MEDS: POTASSIUM CHLORIDE (SR) 20 MEQ TAB PO (13:37)
[2017-06-24] MEDS: LEVOFLOXACIN 250 MG TAB PO (06:18)
[2017-06-24] MEDS: ACETAMINOPHEN 325 MG TAB PO (06:19)
[2017-06-24] MEDS: APIXABAN 5 MG TABLET PO (08:47)
[2017-06-24] MEDS: SODIUM HYPOCHLORITE 0.125% 473 ML BTL IRR (08:48)
[2017-06-24] MEDS: BALSAM PERU/CASTOR OIL 60 GM TUBE TOP (08:48)
[2017-06-24] MEDS: METOPROLOL 25 MG TAB PO (08:48)
== END 2017-06-24 17:46 | DRG 309 ==
LOC: E/R 10:38 → MS4 14:27
DX: I48.0 Paroxysmal atrial fibrillation (principal); N39.0 Urinary tract infection, site not specified; F03.90 Unspecified dementia, unspecified severity, without behavioral disturbance, psychotic disturbance, mood disturbance, and anxiety; B96.20 Unspecified Escherichia coli [E. coli] as the cause of diseases classified elsewhere; L89.150 Pressure ulcer of sacral region, unstageable
CPT/HCPCS: 36415; 71045; 80048; 80053; 81001; 83690; 83735; 84443; 84484; 85025; 85610; 85730; 87040; 87086; 93005; 96374; 96375; 97110; 97162; 99217; 99291-25; G0378

== ENCOUNTER 2018-01-14 13:42 | Emergency (ER) | payer MEDICARE, OTHER | END 2018-01-14 15:53 | disposition home or self-care (01) | LOC: FTE 13:42 | DX: S61.401A Unspecified open wound of right hand, initial encounter (principal); G30.9 Alzheimer's disease, unspecified; I10 Essential (primary) hypertension; E66.9 Obesity, unspecified; W23.0XXA Caught, crushed, jammed, or pinched between moving objects, initial encounter; Y92.9 Unspecified place or not applicable | CPT/HCPCS: 73130; 73130-RT; 99283-25 ==

== ENCOUNTER 2018-04-08 13:42 | Emergency (ER) | payer SELFPAY, OTHER, MEDICARE | END 2018-04-08 16:46 | disposition left against medical advice (07) | LOC: E/R 13:42 | DX: Z53.21 Procedure and treatment not carried out due to patient leaving prior to being seen by health care provider (principal) ==

== ENCOUNTER 2018-04-10 15:34 | Inpatient (IN) | payer MEDICARE, OTHER ==
[2018-04-10 16:09] LABS: ADD MAN DIFF? NO
[2018-04-10] MEDS: CEFTRIAXONE 1 GM/50 ML (PMX) 50 ML IVPB ×2 (16:13→21:47)
[2018-04-10 16:14] LABS: ABNORMAL IP MESSAGE 1; BASOPHIL # 0.1 10^3/ul (0.0-0.1); BASOPHILS % 0.5 % (0.0-2.0); EOSINOPHILS % 0.3 % (0.0-7.0); HEMATOCRIT 34.5 % (37.0-47.0); HEMOGLOBIN 9.6 g/dl (12.0-16.0); LYMPHOCYTES # 2.2 10^3/ul (0.8-2.9); LYMPHOCYTES % 17.4 % (15.0-51.0); MEAN CORPUSCULAR HEMOGLOBIN 25.3 pg (29.0-33.0); MEAN CORPUSCULAR HGB CONC 27.8 g/dl (32.0-37.0); MONOCYTE # 0.4 10^3/ul (0.3-0.9); MONOCYTES % 3.3 % (0.0-11.0); NEUTROPHIL # 9.8 10^3/ul (1.6-7.5); NEUTROPHILS % 77.6 % (39.0-77.0); PLATELET COUNT 313 10^3/UL (140-415); RED BLOOD COUNT 3.79 10^6/ul (4.20-5.40); RED CELL DISTRIBUTION WIDTH 15.4 % (11.5-14.5)
[2018-04-10 16:14] LABS: WHITE BLOOD COUNT 12.7 10^3/ul (4.8-10.8)
[2018-04-10] MEDS: DEXAMETHASONE 10 MG/ML 1 ML INJ IV (16:14)
[2018-04-10] MEDS: AZITHROMYCIN 500MG/NS (PMX) 250 ML IV (16:21)
[2018-04-10] MEDS: ALBUTEROL 0.5% (NEB) 2.5 MG/0.5 ML AMP INH (16:24)
[2018-04-10] MEDS: IPRATROPIUM (NEB) 0.5 MG/2.5 ML AMP INH (16:24)
[2018-04-10 16:32] LABS: ALANINE AMINOTRANSFERASE 21 IU/L (13-69); ALBUMIN 3.6 g/dl (3.3-4.9); ALBUMIN/GLOBULIN RATIO 1.16; ALKALINE PHOSPHATASE 94 IU/L (42-121); ANION GAP 3 (5-13); ASPARTATE AMINO TRANSFERASE 23 IU/L (15-46); BILIRUBIN,INDIRECT 0.3 mg/dl (0-1.1); BILIRUBIN,TOTAL 0.3 mg/dl (0.2-1.3); BLOOD UREA NITROGEN 16 mg/dl (7-20); CALCIUM 8.3 mg/dl (8.4-10.2); CARBON DIOXIDE 31 mmol/L (21-31); CHLORIDE 106 mmol/L (97-110); CREATININE 0.58 mg/dl (0.44-1.00); GLUCOSE 188 mg/dl (70-220); POTASSIUM 3.8 mmol/L (3.5-5.1); SODIUM 140 mmol/L (135-144); TOTAL PROTEIN 6.7 g/dl (6.1-8.1)
[2018-04-10 16:37] LABS: PROTIME 19.1 Sec (11.9-14.9); PT RATIO 1.5
[2018-04-10 16:38] LABS: PARTIAL THROMBOPLASTIN TIME 29.6 Sec (23.0-35.0)
[2018-04-10 16:42] LABS: B-TYPE NATRIURETIC PEPTIDE 1690 PG/ML (0-450)
[2018-04-10 16:44] LABS: TROPONIN-I < 0.012 ng/ml (0.000-0.120)
[2018-04-10 17:40] LABS: ADD UMIC YES; UR ASCORBIC ACID NEGATIVE (NEGATIVE); UR BACTERIA MANY /HPF (NONE SEEN); UR BILIRUBIN (Dip) 1+ mg/dL (NEGATIVE); UR BLOOD (Dip) 3+ mg/dL (NEGATIVE); UR BUDDING YEAST FEW /HPF (NONE SEEN); UR CLARITY CLOUDY (CLEAR); UR COLOR RED (YELLOW); UR GLUCOSE (Dip) NEGATIVE (NEGATIVE); UR KETONES (Dip) NEGATIVE (NEGATIVE); UR LEUKOCYTE ESTERASE (Dip) TRACE Leu/ul (NEGATIVE); UR MUCUS FEW /HPF (NONE SEEN); UR NITRITE (Dip) POSITIVE (NEGATIVE); UR RBC > 182 /HPF (0-5); UR SPECIFIC GRAVITY (Dip) 1.028 (1.003-1.030); UR SQUAMOUS EPITHELIAL CELL FEW /HPF (FEW); UR TOTAL PROTEIN (Dip) 2+ mg/dl (NEGATIVE); UR UROBILINOGEN (Dip) NEGATIVE (NEGATIVE); UR WBC 52 /HPF (0-5)
[2018-04-10] MEDS: SOD CHLORIDE 0.9% 100 ML (18:16)
[2018-04-10] MEDS: IOHEXOL 100 ML (18:16)
[2018-04-10] MEDS ORDERED: traMADol 50 MG TAB PO (18:30)
[2018-04-10] MEDS ORDERED: NACL 0.9% 3 ML SYG IV (19:00)
[2018-04-10] MEDS ORDERED: ONDANSETRON 4 MG INJ IV (19:00)
[2018-04-10] MEDS ORDERED: ACETAMINOPHEN 325 MG TAB PO (19:00)
[2018-04-10] MEDS ORDERED: AZITHROMYCIN 500MG/NS (PMX) 250 ML IV (19:00)
[2018-04-10] MEDS ORDERED: ALBUTEROL 0.083% (NEB) 2.5 MG/3 ML AMP NEB (19:00)
[2018-04-10] MEDS: GABAPENTIN 300 MG CAP PO (21:43)
[2018-04-10] MEDS: BACLOFEN 10 MG TAB PO (21:44)
[2018-04-10] MEDS: FAMOTIDINE 20 MG TAB PO (21:44)
[2018-04-10] MEDS: APIXABAN 5 MG TABLET PO (21:45)
[2018-04-10] MEDS: FUROSEMIDE 40 MG INJ IV (21:47)
[2018-04-10] MEDS: SOD CHLORIDE 0.9% 500 ML IV (22:36)
[2018-04-10] MEDS: METOPROLOL 5 MG INJ IV (23:03)
[2018-04-10] MEDS: DILTIAZEM 25 MG INJ IV (23:40)
[2018-04-11] MEDS: DILTIAZEM 25 MG INJ IV (01:08)
[2018-04-11] MEDS: METOPROLOL 25 MG TAB PO ×4 (02:17→21:35)
[2018-04-11] MEDS: DILTIAZEM-D5W 125MG/125ML DRIP 125 ML IV (04:52)
[2018-04-11 05:26] LABS: WHITE BLOOD COUNT 5.8 10^3/ul (4.8-10.8)
[2018-04-11 05:26] LABS: ABNORMAL IP MESSAGE 1; ADD MAN DIFF? NO; BASOPHILS % 0.2 % (0.0-2.0); HEMATOCRIT 29.7 % (37.0-47.0); HEMOGLOBIN 8.5 g/dl (12.0-16.0); LYMPHOCYTES # 0.9 10^3/ul (0.8-2.9); LYMPHOCYTES % 16.1 % (15.0-51.0); MEAN CORPUSCULAR HEMOGLOBIN 25.8 pg (29.0-33.0); MEAN CORPUSCULAR HGB CONC 28.6 g/dl (32.0-37.0); MEAN CORPUSCULAR VOLUME 90.3 fl (82.0-101.0); MEAN PLATELET VOLUME 10.7 fl (7.4-10.4); MONOCYTE # 0.4 10^3/ul (0.3-0.9); MONOCYTES % 6.4 % (0.0-11.0); NEUTROPHIL # 4.4 10^3/ul (1.6-7.5); PLATELET COUNT 215 10^3/UL (140-415); RED BLOOD COUNT 3.29 10^6/ul (4.20-5.40); RED CELL DISTRIBUTION WIDTH 15.4 % (11.5-14.5)
[2018-04-11 05:30] LABS: POSITIVE DIFF @See below
[2018-04-11 06:00] LABS: LACTIC ACID 2.2 mmol/L (0.5-2.0)
[2018-04-11 06:15] LABS: ANION GAP 8 (5-13); BLOOD UREA NITROGEN 15 mg/dl (7-20); CALCIUM 8.4 mg/dl (8.4-10.2); CARBON DIOXIDE 31 mmol/L (21-31); CHLORIDE 105 mmol/L (97-110); CREATININE 0.63 mg/dl (0.44-1.00); GLUCOSE 128 mg/dl (70-220); POTASSIUM 4.2 mmol/L (3.5-5.1); SODIUM 144 mmol/L (135-144)
[2018-04-11] MEDS: BACLOFEN 10 MG TAB PO ×3 (06:30→21:34)
[2018-04-11] MEDS ORDERED: METOPROLOL 25 MG TAB PO (09:00)
[2018-04-11] MEDS: FERROUS SULFATE (EC) 325 MG TAB PO (09:53)
[2018-04-11] MEDS: MEMANTINE 10 MG TAB PO (09:53)
[2018-04-11] MEDS: FAMOTIDINE 20 MG TAB PO ×2 (09:53→21:34)
[2018-04-11] MEDS: APIXABAN 5 MG TABLET PO ×2 (09:53→21:34)
[2018-04-11] MEDS: GABAPENTIN 300 MG CAP PO ×3 (09:53→21:34)
[2018-04-11] MEDS: FUROSEMIDE 40 MG INJ IV (09:57)
[2018-04-11] MEDS: VITAMIN A & D 5 GM OINT PACKET TOP ×2 (12:13→17:20)
[2018-04-11] MEDS: FUROSEMIDE 20 MG INJ IV (17:20)
[2018-04-11] MEDS: CEFTRIAXONE 1 GM/50 ML (PMX) 50 ML IVPB (21:34)
[2018-04-12] MEDS: BACLOFEN 10 MG TAB PO ×3 (06:00→21:41)
[2018-04-12] MEDS: FUROSEMIDE 20 MG INJ IV (06:18)
[2018-04-12] MEDS: APIXABAN 5 MG TABLET PO ×2 (08:44→21:16)
[2018-04-12] MEDS: MAGNESIUM HYDROXIDE 30ML CUP PO (08:44)
[2018-04-12] MEDS: MEMANTINE 10 MG TAB PO (08:44)
[2018-04-12] MEDS: DOCUSATE SODIUM 100 MG CAP PO (08:44)
[2018-04-12] MEDS: FAMOTIDINE 20 MG TAB PO ×2 (08:44→21:16)
[2018-04-12] MEDS: GABAPENTIN 300 MG CAP PO ×3 (08:44→21:16)
[2018-04-12] MEDS: FERROUS SULFATE (EC) 325 MG TAB PO (08:44)
[2018-04-12] MEDS: METOPROLOL 25 MG TAB PO ×2 (08:45→21:17)
[2018-04-12] MEDS: CEFTRIAXONE 1 GM/50 ML (PMX) 50 ML IVPB (21:16)
[2018-04-12] MEDS: METOPROLOL 5 MG INJ IV (23:54)
[2018-04-13] MEDS: DILTIAZEM 25 MG INJ IV (01:16)
[2018-04-13] MEDS: BACLOFEN 10 MG TAB PO ×2 (06:23→13:25)
[2018-04-13] MEDS: FAMOTIDINE 20 MG TAB PO (09:24)
[2018-04-13] MEDS: FERROUS SULFATE (EC) 325 MG TAB PO (09:24)
[2018-04-13] MEDS: APIXABAN 5 MG TABLET PO (09:24)
[2018-04-13] MEDS: GABAPENTIN 300 MG CAP PO ×2 (09:24→13:25)
[2018-04-13] MEDS: METOPROLOL 25 MG TAB PO (09:25)
[2018-04-13] MEDS: MEMANTINE 10 MG TAB PO (09:25)
[2018-04-13] MEDS: FUROSEMIDE 20 MG TAB PO (09:25)
[2018-04-13 10:28] LABS: ADD MAN DIFF? NO
[2018-04-13 10:29] LABS: WHITE BLOOD COUNT 6.6 10^3/ul (4.8-10.8)
[2018-04-13 10:29] LABS: BASOPHILS % 0.6 % (0.0-2.0); EOSINOPHILS # 0.1 10^3/ul (0.0-0.5); EOSINOPHILS % 1.7 % (0.0-7.0); HEMATOCRIT 32.3 % (37.0-47.0); HEMOGLOBIN 9.4 g/dl (12.0-16.0); LYMPHOCYTES # 1.7 10^3/ul (0.8-2.9); LYMPHOCYTES % 25.2 % (15.0-51.0); MEAN CORPUSCULAR HEMOGLOBIN 26.3 pg (29.0-33.0); MEAN CORPUSCULAR HGB CONC 29.1 g/dl (32.0-37.0); MEAN CORPUSCULAR VOLUME 90.5 fl (82.0-101.0); MEAN PLATELET VOLUME 10.5 fl (7.4-10.4); MONOCYTE # 0.5 10^3/ul (0.3-0.9); MONOCYTES % 7.9 % (0.0-11.0); NEUTROPHIL # 4.3 10^3/ul (1.6-7.5); NEUTROPHILS % 64.3 % (39.0-77.0); PLATELET COUNT 215 10^3/UL (140-415); RED BLOOD COUNT 3.57 10^6/ul (4.20-5.40); RED CELL DISTRIBUTION WIDTH 16.6 % (11.5-14.5)
[2018-04-13 10:49] LABS: ALANINE AMINOTRANSFERASE 23 IU/L (13-69); ALBUMIN 2.9 g/dl (3.3-4.9); ALBUMIN/GLOBULIN RATIO 1.16; ALKALINE PHOSPHATASE 69 IU/L (42-121); ANION GAP 0 (5-13); ASPARTATE AMINO TRANSFERASE 21 IU/L (15-46); BILIRUBIN,INDIRECT 0.2 mg/dl (0-1.1); BILIRUBIN,TOTAL 0.2 mg/dl (0.2-1.3); BLOOD UREA NITROGEN 19 mg/dl (7-20); CARBON DIOXIDE 38 mmol/L (21-31); CHLORIDE 102 mmol/L (97-110); CREATININE 0.62 mg/dl (0.44-1.00); GLUCOSE 103 mg/dl (70-220); POTASSIUM 4.2 mmol/L (3.5-5.1); SODIUM 140 mmol/L (135-144); TOTAL PROTEIN 5.4 g/dl (6.1-8.1)
[2018-04-13] MEDS: CEFTRIAXONE 1 GM/50 ML (PMX) 50 ML IVPB (11:52)
== END 2018-04-13 15:15 | disposition home or self-care (01) | DRG 308 ==
LOC: E/R 15:34 → TEL 17:45
DX: I48.0 Paroxysmal atrial fibrillation (principal); J18.9 Pneumonia, unspecified organism; I50.33 Acute on chronic diastolic (congestive) heart failure; I82.401 Acute embolism and thrombosis of unspecified deep veins of right lower extremity; N39.0 Urinary tract infection, site not specified; I11.0 Hypertensive heart disease with heart failure; F02.80 Dementia in other diseases classified elsewhere, unspecified severity, without behavioral disturbance, psychotic disturbance, mood disturbance, and anxiety; G30.9 Alzheimer's disease, unspecified; D63.8 Anemia in other chronic diseases classified elsewhere; D50.9 Iron deficiency anemia, unspecified; F32.9 Major depressive disorder, single episode, unspecified; E89.0 Postprocedural hypothyroidism; Z96.653 Presence of artificial knee joint, bilateral; B96.20 Unspecified Escherichia coli [E. coli] as the cause of diseases classified elsewhere
CPT/HCPCS: 36415; 71045; 71275; 80048; 80053; 81001; 83605; 83735; 83880; 84443; 84484; 85025; 85610; 85730; 87040; 87086; 93005; 93306; 94644; 96374; 96375; 97110; 97161; 97530; 99291-25

== ENCOUNTER 2018-07-27 09:29 | Emergency (ER) | payer MEDICARE, OTHER ==
[2018-07-27] MEDS: IBUPROFEN 800 MG TAB PO (10:06)
== END 2018-07-27 11:13 | disposition home or self-care (01) ==
LOC: E/R 11:13
DX: R07.9 Chest pain, unspecified (principal); I10 Essential (primary) hypertension; Z79.01 Long term (current) use of anticoagulants
CPT/HCPCS: 71045; 93005; 99284-25

== ENCOUNTER 2018-10-31 15:26 | Inpatient (IN) | payer MEDICARE, OTHER ==
[2018-10-31] MEDS: FUROSEMIDE 40 MG INJ IV (16:28)
[2018-10-31] MEDS: CEFTRIAXONE 1 GM/50 ML (PMX) 50 ML IVPB (17:15)
[2018-10-31] MEDS ORDERED: NACL 0.9% 3 ML SYG IV (18:00)
[2018-10-31] MEDS ORDERED: HYDROCODONE/APAP (5/325) TAB PO (18:00)
[2018-10-31] MEDS ORDERED: ONDANSETRON 4 MG INJ IV (18:00)
[2018-10-31] MEDS: PANTOPRAZOLE IV 80 MG in SOD CHLORIDE 0.9% 100 ML IV (19:35)
[2018-10-31] MEDS: PANTOPRAZOLE IV 80 MG in SOD CHLORIDE 0.9% 100 ML IVPB (19:35)
[2018-10-31] MEDS: METOPROLOL 25 MG TAB PO (21:00)
[2018-10-31] MEDS ORDERED: APIXABAN 5 MG TABLET PO (21:00)
[2018-10-31] MEDS ORDERED: NON-FORMULARY/PATIENT OWN MED (Pravastatin Sodium* 40 MG) PO (21:00)
[2018-10-31] MEDS: FERROUS SULFATE (EC) 325 MG TAB PO (21:58)
[2018-10-31] MEDS: ATORVASTATIN 10 MG TAB PO (21:59)
[2018-10-31] MEDS: AMIODARONE 200 MG TAB PO (22:01)
[2018-10-31] MEDS: MEMANTINE 10 MG TAB PO (23:48)
[2018-11-01] MEDS: PANTOPRAZOLE IV 80 MG in SOD CHLORIDE 0.9% 100 ML IV (04:33)
[2018-11-01] MEDS: FUROSEMIDE 20 MG INJ IV ×2 (05:43→17:27)
[2018-11-01] MEDS: METOPROLOL 25 MG TAB PO ×2 (08:01→21:30)
[2018-11-01] MEDS: FERROUS SULFATE (EC) 325 MG TAB PO ×2 (08:42→21:31)
[2018-11-01] MEDS: MEMANTINE 10 MG TAB PO ×2 (08:42→21:30)
[2018-11-01] MEDS: AMIODARONE 200 MG TAB PO ×2 (08:42→21:31)
[2018-11-01] MEDS: FLUOXETINE 10 MG CAP PO (08:43)
[2018-11-01] MEDS: DONEPEZIL 10 MG TAB PO (08:43)
[2018-11-01] MEDS: PANTOPRAZOLE (EC) 40 MG TAB PO (17:26)
[2018-11-01] MEDS: CEFTRIAXONE 1 GM/50 ML (PMX) 50 ML IVPB (17:26)
[2018-11-01] MEDS: SUCRALFATE (100 MG/ML) 10ML CUP PO ×2 (17:26→21:31)
[2018-11-01] MEDS: ATORVASTATIN 10 MG TAB PO (21:31)
[2018-11-01] MEDS: LORAZEPAM 2 MG INJ IV (22:00)
[2018-11-02] MEDS: PANTOPRAZOLE (EC) 40 MG TAB PO ×2 (06:00→21:21)
[2018-11-02] MEDS: FUROSEMIDE 20 MG INJ IV ×2 (06:49→21:31)
[2018-11-02] MEDS: SUCRALFATE (100 MG/ML) 10ML CUP PO ×3 (08:34→21:16)
[2018-11-02] MEDS: METOPROLOL 25 MG TAB PO ×2 (08:35→21:00)
[2018-11-02] MEDS: FLUOXETINE 10 MG CAP PO (08:35)
[2018-11-02] MEDS: FERROUS SULFATE (EC) 325 MG TAB PO ×2 (08:35→21:20)
[2018-11-02] MEDS: AMIODARONE 200 MG TAB PO ×2 (08:36→21:19)
[2018-11-02] MEDS: DONEPEZIL 10 MG TAB PO (08:36)
[2018-11-02] MEDS: MEMANTINE 10 MG TAB PO ×2 (08:36→21:20)
[2018-11-02] MEDS ORDERED: LIDOCAINE 2% (SDV) 5 ML INJ (17:38)
[2018-11-02] MEDS ORDERED: ETOMIDATE 20 MG INJ (17:38)
[2018-11-02] MEDS ORDERED: LIDOCAINE 4% SOLUTION 50 ML BTL (17:38)
[2018-11-02] MEDS ORDERED: PROPOFOL 20 ML (17:38)
[2018-11-02] MEDS: CEFTRIAXONE 1 GM/50 ML (PMX) 50 ML IVPB (21:15)
[2018-11-02] MEDS: ATORVASTATIN 10 MG TAB PO (21:18)
[2018-11-02] MEDS: TRIMETHOPRIM/SULFAMETHOX (DS) TAB PO (21:21)
[2018-11-03] MEDS: ZOLPIDEM 5 MG TAB PO ×2 (00:30→20:33)
[2018-11-03] MEDS: PANTOPRAZOLE (EC) 40 MG TAB PO ×2 (06:28→17:35)
[2018-11-03] MEDS: FUROSEMIDE 20 MG INJ IV ×2 (06:31→17:36)
[2018-11-03] MEDS: DONEPEZIL 10 MG TAB PO (09:43)
[2018-11-03] MEDS: TRIMETHOPRIM/SULFAMETHOX (DS) TAB PO ×2 (09:43→20:33)
[2018-11-03] MEDS: FERROUS SULFATE (EC) 325 MG TAB PO ×2 (09:43→20:32)
[2018-11-03] MEDS: MEMANTINE 10 MG TAB PO ×2 (09:43→20:32)
[2018-11-03] MEDS: SUCRALFATE (100 MG/ML) 10ML CUP PO ×4 (09:43→20:33)
[2018-11-03] MEDS: FLUOXETINE 10 MG CAP PO (09:44)
[2018-11-03] MEDS: AMIODARONE 200 MG TAB PO ×2 (09:45→20:33)
[2018-11-03] MEDS: METOPROLOL 25 MG TAB PO ×2 (09:45→20:32)
[2018-11-03] MEDS: MAGNESIUM SULFATE 2 GM/50 ML 50 ML IVPB (12:39)
[2018-11-03] MEDS: POTASSIUM CHLORIDE (SR) 20 MEQ TAB PO ×2 (12:39→17:35)
[2018-11-03] MEDS: CEFTRIAXONE 1 GM/50 ML (PMX) 50 ML IVPB (17:36)
[2018-11-03] MEDS: ATORVASTATIN 10 MG TAB PO (20:33)
[2018-11-04] MEDS: PANTOPRAZOLE (EC) 40 MG TAB PO ×2 (06:13→17:09)
[2018-11-04] MEDS: FUROSEMIDE 20 MG INJ IV ×2 (06:13→17:11)
[2018-11-04] MEDS: TRIMETHOPRIM/SULFAMETHOX (DS) TAB PO ×2 (09:08→20:36)
[2018-11-04] MEDS: SUCRALFATE (100 MG/ML) 10ML CUP PO ×4 (09:08→20:37)
[2018-11-04] MEDS: FERROUS SULFATE (EC) 325 MG TAB PO ×2 (09:08→20:36)
[2018-11-04] MEDS: MEMANTINE 10 MG TAB PO ×2 (09:09→20:36)
[2018-11-04] MEDS: METOPROLOL 25 MG TAB PO ×2 (09:09→20:37)
[2018-11-04] MEDS: AMIODARONE 200 MG TAB PO ×2 (09:09→20:37)
[2018-11-04] MEDS: FLUOXETINE 10 MG CAP PO (09:09)
[2018-11-04] MEDS: DONEPEZIL 10 MG TAB PO (09:10)
[2018-11-04] MEDS: MAGNESIUM CITRATE 300 ML BTL PO (15:56)
[2018-11-04] MEDS: CEFTRIAXONE 1 GM/50 ML (PMX) 50 ML IVPB (17:00)
[2018-11-04] MEDS: ACETAMINOPHEN 325 MG TAB PO (17:10)
[2018-11-04] MEDS: ATORVASTATIN 10 MG TAB PO (20:37)
[2018-11-04] MEDS: ZOLPIDEM 5 MG TAB PO (20:38)
[2018-11-05] MEDS: PANTOPRAZOLE (EC) 40 MG TAB PO (05:49)
[2018-11-05] MEDS: FUROSEMIDE 20 MG INJ IV (05:49)
[2018-11-05] MEDS: SUCRALFATE (100 MG/ML) 10ML CUP PO ×2 (09:00→12:11)
[2018-11-05] MEDS: FLUOXETINE 10 MG CAP PO (09:00)
[2018-11-05] MEDS: METOPROLOL 25 MG TAB PO (09:00)
[2018-11-05] MEDS: TRIMETHOPRIM/SULFAMETHOX (DS) TAB PO (09:01)
[2018-11-05] MEDS: FERROUS SULFATE (EC) 325 MG TAB PO (09:01)
[2018-11-05] MEDS: AMIODARONE 200 MG TAB PO (09:01)
[2018-11-05] MEDS: MEMANTINE 10 MG TAB PO (09:01)
[2018-11-05] MEDS: DONEPEZIL 10 MG TAB PO (09:01)
== END 2018-11-05 12:35 | DRG 377 ==
LOC: E/R 15:26 → MS3 17:51
PROC: 0DB78ZX Excision of Stomach, Pylorus, Via Natural or Artificial Opening Endoscopic, Diagnostic (ICD-10-PCS; principal; 2018-11-02 15:30)
DX: K25.4 Chronic or unspecified gastric ulcer with hemorrhage (principal); I50.33 Acute on chronic diastolic (congestive) heart failure; N39.0 Urinary tract infection, site not specified; K22.2 Esophageal obstruction; D50.0 Iron deficiency anemia secondary to blood loss (chronic); I11.0 Hypertensive heart disease with heart failure; I48.0 Paroxysmal atrial fibrillation; F03.90 Unspecified dementia, unspecified severity, without behavioral disturbance, psychotic disturbance, mood disturbance, and anxiety; B95.2 Enterococcus as the cause of diseases classified elsewhere; Z79.02 Long term (current) use of antithrombotics/antiplatelets; Z96.653 Presence of artificial knee joint, bilateral; Z87.891 Personal history of nicotine dependence; Z86.718 Personal history of other venous thrombosis and embolism
CPT/HCPCS: 36415; 71045; 80048; 80053; 80061; 81001; 82550; 82553; 83036; 83690; 83735; 83880; 84100; 84443; 84484; 85014; 85018; 85025; 85610; 85730; 87086; 88305; 88312; 93005; 93306; 93970; 96365; 96375; 97116; 97162; 99285-25